=== PATIENT | male | born 1935 | race Caucasian/White ===

== ENCOUNTER 2017-07-07 01:13 | Emergency (ER) | payer MEDICARE ==
[~2017-07-07] VITALS: Ht 180.3 cm; Wt 93.9 kg
[~2017-07-07 01:13] MED LIST: ALLOPURINOL100 MG PO; ALLOPURINOL300 MG PO; ASPIR-LOW81 MG PO; CO Q-10200 MG PO; COLCHICINE0.6 M1 PO; METAMUCIL FIBE3.4 GM PO; METFORMIN HCL500 MG PO; METOPROLOL TAR100 MG PO; NIACIN500 M1 PO; OMEGA 3 1,0001 EACH PO; TAMSULOSIN HCL0.4 MG PO; TESTOSTERO200 MG/1 M IM; TURMERIC538 MG PO; ULTRAM50 MG PO; VITAMIN B122500 MCG PO; WARFARIN SODIUM5 MG PO; ZOLPIDEM TARTRA10 MG PO
== END 2017-07-07 03:45 | disposition home or self-care (01) ==
LOC: ED 01:13
PROC: 0HQ1XZZ Repair Face Skin, External Approach (ICD-10-PCS; principal; 2017-07-07)
DX: K91.841 Postprocedural hemorrhage of a digestive system organ or structure following other procedure (principal); Z87.891 Personal history of nicotine dependence; Z79.01 Long term (current) use of anticoagulants; Z79.84 Long term (current) use of oral hypoglycemic drugs; Z79.82 Long term (current) use of aspirin
CPT/HCPCS: 12001; 80053; 85025; 85610; 85730; 99283

== ENCOUNTER 2017-12-04 17:26 | Emergency (ER) | payer MEDICARE ==
[~2017-12-04] VITALS: Ht 180.3 cm; Wt 93.9 kg
--- OUTSIDE RECORDS SUMMARY | ~2017-12-04 | XMS | Clinical Summary ---
Demographics + + + | Address | [address] | | | [place] [address] | + + + | Home Phone | | + + + | Preferred Language | Unknown | + + + | Marital Status | | + + + | Advent Affiliation | Unknown | + + + | Race | Unknown | + + + | Ethnic Group | Unknown | + + + Author + + + | Author | [facility] | + + + | Organization | [facility] | + + + | Address | Unknown | + + + | Phone | Unavailable | + + + Support + + +---------+ + | Name | Relationship | Address | Phone | + + +---------+ + | Joaquín Vaz | ECON | Unknown | | + + +---------+ + Care Team Providers + +------+ + | Care Nurse Leader Name | Role | Phone | + +------+ + | John Murray MD | PP | | + +------+ + Allergies + + + + + + | Active Allergy | Reactions | Severity | Noted | Comments | | | | | Date | | + + + + + + | Lisinopril | Cough | Low | 10/25/20 | Cough | | | | | 12 | | + + + + + + Current Medications + + +-------+---------+------+------+-------+ | Prescription | Sig. | Disp. | Refills | Star | End | Statu | | | | | | t | Date | s | | | | | | Date | | | + + +-------+---------+------+------+-------+ | metFORMIN | Take 500 mg by mouth | | | | | Activ | | (GLUCOPHAGE) 500 MG | daily. | | | | | e | | tablet | | | | | | | + + +-------+---------+------+------+-------+ | colchicine 0.6 MG | Take 0.6 mg by mouth | | | | | Activ | | tablet | daily. | | | | | e | + + +-------+---------+------+------+-------+ | tamsulosin | Take 0.8 mg by mouth | | | | | Activ | | (FLOMAX) 0.4 MG | After dinner. | | | | | e | | capsule | Administer 30 | | | | | | | | minutes after the | | | | | | | | same meal each day. | | | | | | | | Capsules should be | | | | | | | | swallowed whole; do | | | | | | | | not crush, chew, or | | | | | | | | open | | | | | | + + +-------+---------+------+------+-------+ | psyllium | Take 1 packet by | | | | | Activ | | (METAMUCIL) 58.6 % | mouth daily. | | | | | e | | powder | | | | | | | + + +-------+---------+------+------+-------+ | Multiple | Take by mouth | | | | | Activ | | Vitamins-Minerals | daily. | | | | | e | | (OCUVITE EYE HEALTH | | | | | | | | FORMULA PO) | | | | | | | + + +-------+---------+------+------+-------+ | testosterone | Inject 100 mg into | | | | | Activ | | cypionate | the muscle every 28 | | | | | e | | (DEPOTESTOTERONE | days. | | | | | | | CYPIONATE) 100 MG/ML | | | | | | | | injection | | | | | | | + + +-------+---------+------+------+-------+ | acetaminophen | Take 650 mg by mouth | | | | | Activ | | (TYLENOL) 650 MG CR | daily as needed for | | | | | e | | tablet | Pain. | | | | | | + + +-------+---------+------+------+-------+ | cyanocobalamin | Take 1,000 mcg by | | | | | Activ | | (VITAMIN B-12) 1000 | mouth daily. | | | | | e | | MCG tablet | | | | | | | + + +-------+---------+------+------+-------+ | Misc Natural | Take 1 tablet by | | | | | Activ | | Products (JOINT | mouth daily. | | | | | e | | SUPPORT COMPLEX PO) | | | | | | | + + +-------+---------+------+------+-------+ | TURMERIC PO | Take 720 mg by mouth | | | | | Activ | | | daily. | | | | | e | + + +-------+---------+------+------+-------+ | losartan (COZAAR) | Take 25 mg by mouth | | | | | Activ | | 25 MG tablet | daily. | | | | | e | + + +-------+---------+------+------+-------+ | warfarin | Take 5 mg by mouth | | | | | Activ | | (COUMADIN) 5 MG | daily. | | | | | e | | tablet | | | | | | | + + +-------+---------+------+------+-------+ | metoprolol | Take 1 tablet by | | | 10/0 | | Activ | | (TOPROL-XL) 50 MG 24 | mouth daily. | | | 3/20 | | e | | hr tablet | | | | 17 | | | + + +-------+---------+------+------+-------+ + + +-------+ +------+------+-------+ | Hospital, Clinic, or | Ordered | Route | Frequency | Star | End | Statu | | Other Facility | Dose | | | t | Date | s | | Administered | | | | Date | | | | Medication | | | | | | | + + +-------+ +------+------+-------+ | aspirin chewable | 81 mg | PO | Daily With Breakfast | 02/24 | | Activ | | tablet 81 | | | | 09/12 | | e | | mgIndications: | | | | 17 | | | | Peripheral vascular | | | | | | | | disease (HCC) | | | | | | | + + +-------+ +------+------+-------+ Active Problems + + + | Problem | Noted Date | + + + | Spinal stenosis of lumbar region | 01/26/2017 | + + + | Peripheral vascular disease (HCC) | 01/26/2017 | + + + | HTN (hypertension) | 04/12/2014 | + + + + + | Last Assessment & Plan: HTN, not well controlled, daily we | | added lisinopril 2.5 mg daily, this can be titrated up | | accordingly. I've asked him to get a BMP in one week. | + + + + + | Diabetes mellitus, type 2 | 04/12/2014 | + + + + + | Last Assessment & Plan: DM2, managed by PCP. | + + + + + | Permanent atrial fibrillation (HCC) | 05/18/2013 | + + + + + | Last Assessment & Plan: Cardiac dysrhythmias, clinically | | benign. | + + + + + | Moderate mitral regurgitation | 05/18/2013 | + + + + + | Last Assessment & Plan: MR, TR. 78yo WM, doing rel | | well, he is modestly active, denying any chest discomfort, | | shortness of breath, palpitations, or lightheadedness. Denies | | any new visual disturbances, dysarthria, dysphasia, lateralizing | | signs or symptoms. Recent of carotid ultrasound relatively | | benign, echocardiogram, also relatively benign. Tolerating | | medications. His blood pressure remains elevated, today we added | | lisinopril 2.5 mg daily, this can be titrated as tolerated, BMP | | in one week.Hx CABG: noHx PCI/stent: Lokesh/ICD: noLast | | Cath: naLast Echo, 05/02/2014: borderline concentric LVH, LVEF | | 65-70%, mild LAE, trace MR, trace TR, trace PI, IVC not seen | | well.Last stress test, 09/25/2010: no Lexiscan-induced chest pain, | | no ST segment elevation. Nuclear perfusion is consistent with | | possible mild diaphragmatic attenuation but no evidence of | | myocardial infarction or ischemia with LVEF 70%. | + + + + + | Carotid bruit | 05/18/2013 | + + + + + | Last Assessment & Plan: Carotid bruit, L>R, asymptomatic, | | Carotid US requested.Last Carotid US, 05/02/2014: pee plaque, no no | | significant obstruction. | + + + + + | Other chronic pulmonary heart diseases | 04/21/2013 | + + + + + | Last Assessment & Plan: Pulmonary HTN, cause unclear. Did | | have pee pneumonia last year. | + + Resolved Problems + + + + | Problem | Noted | Resolved | | | Date | Date | + + + + | Chest pain, unspecified | 04/21/20 | | | | 13 | 7 | + + + + | Anemia, unspecified | 04/21/20 | | | | 13 | 7 | + + + + | Other symptoms involving cardiovascular system | 04/21/20 | | | | 13 | 7 | + + + + Family History + + +------+ + | Medical History | Relation | Name | Comments | + + +------+ + | Heart disease | Father | | | + + +------+ + | Diabetes type II | Mother | | | + + +------+ + | High cholesterol | Mother | | | + + +------+ + | Hypertension | Mother | | | + + +------+ + + +------+ + + | Relation | Name | Status | Comments | + +------+ + + | Father | | | massive heart attack | | | | (Age | | | | | 47) | | + +------+ + + | Mother | | | DMII, HTN,Hyperlipidemia | | | | (Age | | | | | 89) | | + +------+ + + Social History + + + +--------+ + | Tobacco Use | Types | Packs/Day | Years | Date | | | | | Used | | + + + +--------+ + | Former Smoker | Cigarettes | | 30 | Quit: 04/26/1979 | + + + +--------+ + + +---+---+---+ | Smokeless Tobacco: | | | | | Former User | | | | + +---+---+---+ + + | Comments: smoked 1 ppd | + + + + +---------+ + | Alcohol Use | Drinks/We | oz/Week | Comments | | | ek | | | + + +---------+ + | Yes | | | rarely drinks beer | + + +---------+ + + + + | Sex Assigned at | Date Recorded | | | | + + + | Not on file | | + + + Last Filed Vital Signs + + + + | Vital Sign | Reading | Time Taken | + + + + | Blood Pressure | 150/80 | 06/30/2017 2:47 PM PST | + + + + | Pulse | 82 | 06/30/2017 2:47 PM PST | + + + + | Temperature | - | - | + + + + | Respiratory Rate | 18 | 06/21/2014 3:29 PM PST | + + + + | Oxygen Saturation | 97% | 06/30/2017 2:47 PM PST | + + + + | Inhaled Oxygen | - | - | | Concentration | | | + + + + | Weight | 94.3 kg (207 lb 14.4 | 06/30/2017 2:47 PM PST | | | oz) | | + + + + | Height | 180.3 cm (5' 11") | 06/30/2017 2:47 PM PST | + + + + | Body Mass Index | 29 | 06/30/2017 2:47 PM PST | + + + + Plan of Treatment + + + + + | Health Maintenance | Due Date | Last Done | Comments | + + + + + | Diabetic Eye Exam | | | | | | 6 | | | + + + + + | Diabetic Foot Exam | | | | | | 6 | | | + + + + + | Microalbumin | | | | | Screening | 6 | | | + + + + + | Vaccine: | | | | | Dtap/Tdap/Td (1 - | 5 | | | | Tdap) | | | | + + + + + | Vaccine: | | | | | Pneumococcal 65+ | 1 | | | | Low/Medium Risk (1 | | | | | of 2 - PCV13) | | | | + + + + + | Hemoglobin A1c | | 07/12/2012, 01/11/2012 | | | | 3 | | | + + + + + | Vaccine: Influenza | | | | | (#1) | 8 | | | + + + + + Results Not on filefrom Last 3 Months Insurance + +--------+ +------+-------+ + | Payer | Benefi | Subscriber | Type | Phone | Address | | | t Plan | ID | | | | | | / | | | | | | | Group | | | | | + +--------+ +------+-------+ + | MEDICARE | MEDICA | [id number] | | | [address] | | | RE | | | | [place] [address] | | | IP-OP | | | | | + +--------+ +------+-------+ + + +--------+ +--------+ + + | Guarantor Name | Accoun | Relation to | Date | Phone | Billing Address | | | t Type | Patient | of | | | | | | | | | | + +--------+ +--------+ + + | JUSTICE VAZ | Person | Self | [birth year] | Home: | [address] | | | al/Fam | | 1935 | [phone] | [place] | | | val[place] | | | [phone] | [phone] | + +--------+ +--------+ + +
--- OUTSIDE RECORDS SUMMARY | ~2017-12-04 | XMS | Clinical Summary ---
Demographics + + + | Address | [address] | | | [place] [address] | + + + | Home Phone | | + + + | Preferred Language | Unknown | + + + | Marital Status | | + + + | Zoroastrianism Affiliation | Unknown | + + + | Race | Unknown | + + + | Ethnic Group | Unknown | + + + Author + + + | Author | [facility] | + + + | Organization | [facility] | + + + | Address | Unknown | + + + | Phone | Unavailable | + + + Support + + +---------+ + | Name | Relationship | Address | Phone | + + +---------+ + | Joaquín Vaz | ECON | Unknown | | + + +---------+ + Care Team Providers + +------+ + | Care Charger Tester Name | Role | Phone | + [...] +------+-------+ + | MEDICARE | MEDICA | [id number] | | | [address] | | | RE | | | | [place] [address] | | | IP-OP | | | [...] | | al/Fam | | 1935 | [phone] | [place] | | | val[place] | | | [phone] | [phone] | + +--------+ +--------+ + +
--- OUTSIDE RECORDS SUMMARY | ~2017-12-04 | XMS | Clinical Summary ---
Demographics + + + | Address | [address] | | | [place] [address] | + + + | Home Phone | | + + + | Preferred Language | Unknown | + + + | Marital Status | | + + + | Evangelical Affiliation | 1028 | + + + | Race | Unknown | + + + | Ethnic Group | Unknown | + + + Author + + + | Author | [facility] | | | and [place] | + + + | Organization | [facility] | | | and [place] | + + + | Address | Unknown | + + + | Phone | Unavailable | + + + Support + + + + + | Name | Relationship | Address | Phone | + + + + + | Joaquín Vaz | SKYLER | [address] | | | | | [place], [place] | | | | | [address] | | + + + + + | Daniela Vaz | ECON | [address] | | | | | [place], [place] | | | | | [address] | | + + + + + Care Team Providers + +------+ + | Care Operator Ground Based [employer] Name | Role | Phone | + +------+ + | Esteban Dodd MD | PP | Unavailable | + +------+ + Allergies + + + + + + | Active Allergy | Reactions | Severity | Noted | Comments | | | | | Date | | + + + + + + | Amitriptyline | Other (See Comments) | | 02/18/20 | Bad dreams | | | | | 12 | | + + + + + + | Felodipine | Other (See Comments) | | 02/18/20 | hypotention | | | | | 12 | | + + + + + + | Fluoxetine | Other (See Comments) | | 02/18/20 | Bad dreams | | | | | 12 | | + + + + + + | Lisinopril | Other (See Comments) | | 02/18/20 | Cough | | | | | 12 | | + + + + + + Current Medications + + +--------+---------+------+------+-------+ | Prescription | Sig. | Disp. | Refills | Star | End | Statu | | | | | | t | Date | s | | | | | | Date | | | + + +--------+---------+------+------+-------+ | | Take 1-2 tablets by | | | | | Activ | | HYDROcodone-acetamin | mouth every 6 hours | | | | | e | | ophen (NORCO) 5-325 | as needed. | | | | | | | mg per tablet | | | | | | | + + +--------+---------+------+------+-------+ | zolpidem (AMBIEN) | Take 10 mg by mouth | | | | | Activ | | 10 mg tablet | nightly as needed. | | | | | e | + + +--------+---------+------+------+-------+ | buPROPion | Take 100 mg by mouth | | | | | Activ | | (WELLBUTRIN SR) 100 | 2 times daily. | | | | | e | | mg 12 hr tablet | | | | | | | + + +--------+---------+------+------+-------+ | metoprolol | Take 100 mg by mouth | | | | | Activ | | (LOPRESSOR) 100 MG | Daily. | | | | | e | | tablet | | | | | | | + + +--------+---------+------+------+-------+ | psyllium | Take 0.52 g by mouth | | | | | Activ | | (METAMUCIL) 0.52 G | Daily. | | | | | e | | capsule | | | | | | | + + +--------+---------+------+------+-------+ | potassium chloride | Take 10 mEq by | | | | | Activ | | (K-DUR) 10 MEQ | mouth. | | | | | e | | tablet | | | | | | | + + +--------+---------+------+------+-------+ | omeprazole | Take 20 mg by mouth | | | | | Activ | | (PRILOSEC) 20 mg | every morning | | | | | e | | capsule | (before breakfast). | | | | | | | | | | | | | | + + +--------+---------+------+------+-------+ | Multiple Vitamin | Take 1 tablet by | | | | | Activ | | (MULTIVITAMIN PO) | mouth Daily. | | | | | e | + + +--------+---------+------+------+-------+ | Coenzyme Q10 | Take 1 capsule by | | | | | Activ | | (COQ10) 400 MG CAPS | mouth Daily. | | | | | e | + + +--------+---------+------+------+-------+ | | Take 12.5 mg by | | | 12/25 | | Activ | | HYDROCHLOROTHIAZIDE | mouth Daily. | | | 07/13 | | e | | PO | | | | 12 | | | + + +--------+---------+------+------+-------+ | colchicine 0.6 mg | Take 1 mg by mouth | | | 09/1 | | Activ | | tablet | Daily. | | | 3/20 | | e | | | | | | 12 | | | + + +--------+---------+------+------+-------+ | niacin 500 mg | Take 500 mg by mouth | | | 12/25 | | Activ | | tablet | 3 times daily (with | | | 3/20 | | e | | | meals). | | | 12 | | | + + +--------+---------+------+------+-------+ | metFORMIN | Take 500 mg by mouth | | | 1 | | Activ | | (GLUCOPHAGE) 500 mg | daily (with | | | 3/20 | | e | | tablet | breakfast). | | | 12 | | | + + +--------+---------+------+------+-------+ | testosterone | Inject 200 mg into | | | | | Activ | | cypionate | the muscle Every 28 | | | | | e | | (DEPO-TESTOSTERONE) | days. | | | | | | | 200 mg/mL injection | | | | | | | + + +--------+---------+------+------+-------+ | UNCODED MEDICATION | Wear at all times | 1 | 0 | 11/ | | Activ | | | while sleeping. | Device | | 07/13 | | e | | | | | | 12 | | | + + +--------+---------+------+------+-------+ | UNCODED | Diagnosis: | 1 | 0 | 12/2 | | Activ | | MEDICATIONIndication | Obstructive Sleep | Device | | 10/13 | | e | | s: Obstructive sleep | ApneaICD-9: | | | 12 | | | | apnea (adult) | 327.23Length of | | | | | | | (pediatric) | Need: 99 Months | | | | | | + + +--------+---------+------+------+-------+ | [place]-3 Fatty | Take 1 tablet by | | | | | Activ | | Acids (OMEGA 3 PO) | mouth Daily. | | | | | e | + + +--------+---------+------+------+-------+ | | Take 1 tablet by | | | | | Activ | | glucosamine-chondroi | mouth Daily. | | | | | e | | tin 500-400 MG | | | | | | | | tablet | | | | | | | + + +--------+---------+------+------+-------+ | aspirin 325 mg | Take 325 mg by mouth | | | | | Activ | | tablet | Daily. | | | | | e | + + +--------+---------+------+------+-------+ Active Problems + + + | Problem | Noted Date | + + + | Obstructive sleep apnea (adult) (pediatric) | 02/18/2012 | + + + + + | Overview: ICD-10 Record update | + + + +---+ | SPINAL STENOSIS, LUMBAR | | + +---+ | HYPERTENSION | | + +---+ | DIABETES MELLITUS, TYPE II | | + +---+ | HYPOGONADISM | | + +---+ | Blood in stool | | + +---+ Family History + + +------+ + | Medical History | Relation | Name | Comments | + + +------+ + | Cancer | Brother | | possible bone cancer | + + +------+ + | Diabetes | Mother | | | + + +------+ + | High blood pressure | Mother | | | + + +------+ + | Arthritis | Sister | | | + + +------+ + | Arthritis | Sister | | | + + +------+ + + +------+ + + | Relation | Name | Status | Comments | + +------+ + + | Brother | | Alive | | + +------+ + + | Brother | | Alive | | + +------+ + + | Brother | | Alive | | + +------+ + + | Daughter | | Alive | | + +------+ + + | Father | | | Myocardial infarction | | | | (Age | | | | | 47) | | + +------+ + + | Mother | | | Old age | | | | (Age | | | | | 89) | | + +------+ + + | Sister | | | Lung cancer | | | | (Age | | | | | 29) | | + +------+ + + | Sister | | | of colon cancer | | | | (Age | | | | | 78) | | + +------+ + + | Sister | | Alive | | + +------+ + + | Sister | | Alive | | + +------+ + + | Son | | Alive | | + +------+ + + | Son | | Alive | | + +------+ + + | Son | | Alive | | + +------+ + + Social History + + + +--------+ + | Tobacco Use | Types | Packs/Day | Years | Date | | | | | Used | | + + + +--------+ + | Former Smoker | Cigarettes | 1 | 21 | Quit: 02/18/1980 | + + + +--------+ + + +---+---+---+ | Smokeless Tobacco: | | | | | Never Used | | | | + +---+---+---+ + + +---------+ + | Alcohol Use | Drinks/We | oz/Week | Comments | | | ek | | | + + +---------+ + | No | | | | + + +---------+ + + + + | Sex Assigned at | Date Recorded | | | | + + + | Not on file | | + + + Last Filed Vital Signs + + + + | Vital Sign | Reading | Time Taken | + + + + | Blood Pressure | 140/78 | 05/12/2012 1401 PST | + + + + | Pulse | 51 | 05/12/2012 140 PST | + + + + | Temperature | - | - | + + + + | Respiratory Rate | 14 | 05/12/2012 140 PST | + + + + | Oxygen Saturation | 97% | 03/08/2012 0824 PST | + + + + | Inhaled Oxygen | - | - | | Concentration | | | + + + + | Weight | 99.8 kg (220 lb) | 08/09/20121607 PDT | + + + + | Height | 180.3 cm (5' 11") | 08/09/20121607 PDT | + + + + | Body Mass Index | 30.68 | 08/09/20121607 PDT | + + + + Plan of [...] filefrom Last 3 Months Insurance + +--------+ +--------+ +---------+ | Payer | Benefi | Subscriber | Type | Phone | Address | | | t Plan | ID | | | | | | / | | | | | | | Group | | | | | + +--------+ +--------+ +---------+ | MEDICARE | MEDICA | [id number] | Medica | [phone] | | | | RE | | re | [phone] | | | | PART A | | | | | | | AND B | | | | | + +--------+ +--------+ +---------+ | ANASTASIYA | STERLI | [id number] | Indemn | [phone] | | | | NG | | ity | [phone] | | | | MDCR | | | | | | | SUPPL | | | | | | | CIGNA | | | | | + +--------+ +--------+ +---------+ + +--------+ +--------+ + + | Guarantor [...] [address] | | | al/Fam | | 1936 | [phone] | [place] [address] | | | valerie | | | [phone] | | + +--------+ +--------+ + +
--- OUTSIDE RECORDS SUMMARY | ~2017-12-04 | XMS | Clinical Summary ---
Demographics + + + | Address | [address] | | | [place] [address] | + + + | Home Phone | | + + + | Preferred Language | Unknown | + + + | Marital Status | | + + + | Pentecostalism Affiliation | 1028 | + + + | Race | Unknown | + + + | Ethnic Group | Unknown | + + + Author + + + | Author | [facility] | | | and [place] | + + + | Organization | [facility] | | | and [place] | [...] [place], [place] | | | | | [address] | | + + + + + | Daniela Vaz | ECON | [address] | | | | | [place], [place] | | | | | [address] | | + + + + + Care Team Providers + +------+ + | Care Manager Background Name | Role | Phone | + [...] | | | + + +--------+---------+------+------+-------+ | Minter-3 Fatty | Take 1 tablet by | [...] +--------+ +---------+ | MEDICARE | MEDICA | [id number] | Medica | [phone] | | | | RE | | re | [phone] | | | | PART A | | | | | | | AND B | | | | | + +--------+ +--------+ +---------+ | ANASTASIYA | STERLI | [id number] | Indemn | [phone] | | | | NG | | [...] | | al/Fam | | 1936 | [phone] | [place] [address] | | | valerie | | | [address] | | + +--------+ +--------+ + +
--- NOTE | 2017-12-05 14:26 | EKG ---
[facility] [address] [place], [place] [address] Signed Atrial fibrillation Right bundle branch block Abnormal ECG No previous ECGs available Confirmed by JENIFER LINN MD ([id number]) on 12/05/2017 2:25:57 PM Electronically Signed By: JENIFER LINN MD 12/05/17 1426 PATIENT NAME: JUSTICE LLANES Electrocardiogram DATE OF : 35 PHYSICIAN: JENIFER LINN MD REPORT #: [id number] REPORT IS CONFIDENTIAL AND NOT TO BE RELEASED WITHOUT AUTHORIZATION
== END 2017-12-04 20:17 | disposition short-term general hospital (02) ==
LOC: ED 17:26
DX: I61.9 Nontraumatic intracerebral hemorrhage, unspecified (principal); Z87.891 Personal history of nicotine dependence; Z79.01 Long term (current) use of anticoagulants; Z79.84 Long term (current) use of oral hypoglycemic drugs; Z79.82 Long term (current) use of aspirin; Z79.899 Other long term (current) drug therapy
CPT/HCPCS: 70450; 80053; 81001; 84484; 85025; 85610; 85730; 93005; 93010; 96365; 96366; 96375; 99285; J1953

== ENCOUNTER 2021-10-06 11:52 | Inpatient (IN) | payer MEDICARE, OTHER ==
[~2021-10-06] VITALS: Ht 180.3 cm; Wt 87.6 kg
[~2021-10-06 11:52] MED LIST changes: +NIACIN ER1000 MG PO; -NIACIN500 M1 PO
--- OUTSIDE RECORDS SUMMARY | 2021-10-06 11:54 | XMS ---
PreManage Notification: JUSTICE LLANES Security [employer] Specialist Events No recent Security Events currently on file [facility] There are no care providers on record at this time. Marvin has no Care Guidelines for this patient. Wang VISIT COUNT (12 MO.) 1 MALIA Rizo TOTAL 1 NOTE: Visits indicate total known visits. ED/C VISIT TRACKING (12 MO.) 10/06/2021 11:53 MALIA Mcgregor [place] TYPE: Emergency COMPLAINT: - L FOOT WOUND INPATIENT VISIT TRACKING (12 MO.) No inpatient visits to display in this time frame [email or web address]
[2021-10-06] MEDS ORDERED: DOXYCYCLINE HY100 MG PO (12:17)
[2021-10-06] MEDS ORDERED: AMOX TR-K CLV1 EAC1 PO (12:17)
--- NOTE | 2021-10-06 15:00 | NUR ---
Pt arrives from ED to [facility] room 112 on stretcher. Able to transfer self to bed. R foot noted to be hot, red and tender. Outlined cellulitic porition noted. Elevated on pillow. L foot wrapped from recent amputation of L middle toe with online trader outpatient. Pt on telemetry, states did not take his scheduled BP meds this am. On room air. IV ABX from ED infusing. Hx and assessment complete- pt states that he has become "more forgetful in the last 3 weeks since this all happened" and has to "think carefully about what he's doing". pt endorses frequent falls in past but states "it has been a long time". CHICK[place]OON, bilat hearing aids in place. Upper dentures. Pt uses cane or walker at home usually w ambulation. Pt ambulates to BR with 1PA to void, has difficulty with dribbling/aim, new gown provided. Pt Daniela to come in later this evening.
--- NOTE | 2021-10-06 16:17 | NUR ---
Scheduled medications administered, IVF infusing with IV ABX. Pt forgetful, IV wrapped with cloth and coban. Bed alarm in place. Pt states "I keep wondering why I'm here", discussed need for IV ABX, infection risk, etc. and pt verbalizes understanding- continue to reinforce. Pt states having pain, discussed home meds and Dr Carlson aware.
[2021-10-06] MEDS ORDERED: HYDROCODON-ACE1 EA10 PO (16:48)
[2021-10-06] MEDS ORDERED: LOSARTAN POTASS25 MG PO (16:50)
[2021-10-06] MEDS ORDERED: POTASSIUM CHLO10 ME2 PO (16:50)
[2021-10-06] MEDS ORDERED: METFORMIN HCL500 M1 PO (16:51)
[2021-10-06] MEDS ORDERED: TAMSULOSIN HCL0.4 MG PO (16:52)
[2021-10-06] MEDS ORDERED: METOPROLOL SUCC25 MG PO (16:53)
--- NOTE | 2021-10-06 17:30 | NUR ---
MED REC COMPLETE
--- NOTE | 2021-10-06 17:31 | NUR ---
1 unit SS humalog administered and pt educated. Pt stands at bedside to use urinal, HR 130's with Afib and occasional PVCs. Dr Carlson aware.
--- NOTE | 2021-10-06 18:12 | NUR ---
Pt medicated with 1 tab norco for 6/10 pain to post op L foot and cellulitic R foot. Able to swallow pill whole with water. IVF infusing. HOB elevated, pt watching tv. Dinner tray cleared, pt ate 100% of meal. Call light in reach.
--- NOTE | 2021-10-06 19:15 | NUR ---
BEDSIDE REPORT FROM CRISTÓBAL Swift RN, PT HAS BEEN MORE ALERT AND CLEAR IN CONVERSATION TODAY, HE HAS BEEN COOPERATIVE WITH CARE, CONCERN FOR MONITORING URINE OUTPUT CLOSE.
--- NOTE | 2021-10-06 19:20 | NUR ---
REPORT FROM STAN RN, PT NEW ADMIT, RESTING IN BED, ALERT AND ORIENTED. REPOSITIONED AND HAVE FEET ELEVATED ON PILLOWS.
--- NOTE | 2021-10-06 19:57 | NUR ---
PT SET OFF BED ALARM. THIS RN INTO ROOM, PT ATTEMPTING TO GET OUT OF BED. HE SAID HE WAS PICKING UP HIS PHONE, PT THEN SAID HE NEEDED TO USE THE BATHROOM. PT ASSISTED WITH URINAL STANDING AT BEDSIDE. THEN BACK TO BED WITH BED ALARM ON FOR PT SAFETY. NO OTHER REQUESTS AT THIS TIME
--- NOTE | 2021-10-06 22:23 | NUR ---
CALL LIGHT ANSWERED. SBA PATIENT STOOD UP AT THE SIDE OF THE BED TO USE THE URINAL. PATIENT IS BACK IN BED. TV OFF. BED ALARM ON. CALL LIGHT WITHIN REACH AND SIDE TABLE.
--- NOTE | 2021-10-06 23:41 | NUR ---
PT RESTING IN BED ON LEFT SIDE, EYES CLOSED RR 18 BPM, ABX INFUSING WELL IVF, IV SITE ASSESSED WNL. CALL LIGHT IN REACH, BED ALARM ON FOR PT SAFETY. NO NEW CONCERNS
--- NOTE | 2021-10-07 | NUR ---
BED ALARMING. PATIENT GOT UP SITTING AT THE SIDE OF THE BED. PATIENT STATED "I NEED TO PEE". PATIENT IS CONFUSED. PATIENT STATED I THOUGHT I AM HOME. WHEN I ASKED WHERE HE IS PATIENT STATED "I DONT KNOW" PATIENT VOIDED USING THE URINAL SBA. PATIENT IS BACK LAYING IN BED. DENIES FURTHER NEEDS AT THIS TIME. BED ALARM ON. SIDE TABLE AND CALL LIGHT CLOSED BY.
--- NOTE | 2021-10-07 00:43 | NUR ---
CALL LIGHT ANSWERED. IV PUMP ALARMING. ISSUE RESOLVED. SBA WITH FWW TO SIDE OF BED TO VOID 150 ML YELLOW URINE. BACK TO BED, MATA WELL. LLE ELEVATED ON PILLOWS. FRESH DRINK PROVIDED. PT PLEASANTLY CONFUSED. REORIENTATION PROVIDED. ASSISTED WITH TV. NO FURTHER NEEDS. CALL LIGHT IN REACH. BED ALARM FOR SAFETY.
--- NOTE | 2021-10-07 01:30 | NUR ---
BED ALARM SET OFF, PT ATTEMPTING TO EXIT BED WITHOUT USING CALL LIGHT TO REQUESTS ASSISTANCE. THIS RN ASSISTED PT WITH FWW AND URINAL, PT SPILT URINEAL ON FLOOR, VOIDED 150ML OR YELLOW URINE IN URINAL. WHEN URINE SPILT PT SAID "WELL, I DIDNT KNOW I WAS SO BIG I WOULDNT FIT IN THE BOTTLE" THIS RN DID NOT RESPOND, PT THEN SAID "YOU COULD DISAGREE WITH ME" HE THEN SMILED THIS RN SAID " STAFF DOES NOT JOKE ABOUT OR DISCUSS PRIVATE PARTS OF THE BODY WITH PT UNLESS IT IS IN REGARDS TO PTS DX AND TREATMENT" PT SAID "OH, OK" HE THEN ASKED IF THIS RN LIVES IN [facility]. THIS RN SAID "NO", ASSISTED PT BACK TO BED WITH WARM BLANKET. AND SAID BRIANNA.
--- NOTE | 2021-10-07 04:40 | NUR ---
PT HAS SLEPT INTERMITTEN, HE HAS BEEN UP FREQUESNTLY TO VOID AT BEDSIDE IN URINAL USING FWW AND ONE PERSON ASSIST. SHE IS COIDING QUANTITY SUFFICIENT PLUS. NO NEW CONCERNS OVER SHIFT SHE HAD ONE PRN NEB AND TYLENOL PRN FOR GENERAL ACHES.
--- NOTE | 2021-10-07 04:49 | NUR ---
BED ALARMING. PATIENT SAT AT THE EDGE OF THE BED. PATIENT GOT UP TO USE THE URINAL. PATIENT IS BACK LYING IN BED. BED ALARM ON FOR SAFETY.
--- NOTE | 2021-10-07 05:37 | NUR ---
BED ALARM SOUNDING. 1PA WITH FWW TO STAND TO VOID AT SIDE OF BED. BACK IN BED, LEGS ELEVATED ON PILLOWS. BED ALARM ON. pt REQUESTING LOTION FOR FOOT, PRIMARY RN NOTIFIED.
--- NOTE | 2021-10-07 07:05 | NUR ---
Report received from Jessica STARK. Pt resting in bed, awake and interactive with staff. On tele #9, HR [phone] at this time. L leg elevated on pillow. IVF infusing WNL. No needs at this time, call light in reach and bed alarm in place
--- NOTE | 2021-10-07 08:20 | NUR ---
Scheduled medications administered. Pt very impulsive, fidgety. Continues to remove tele leads and getting caught in IV tubing. Assisted to untangle and transfer to chair for breakfast. Pt requires 1-2 P with transfer, easily distracted and unstable with movement. Chair alarm in place. Assisted to use urinal. IV ABX and IV magnesium infusing. Dr Lugo in room to assess wound- cleansed, wound culture collected, wrapped with silvadene dressing directly to open area and kerlix. Order for MRI to L foot entered. Pt extensively educated regarding need for IV ABX and current hospital stay. Continue to reinforce.
--- NOTE | 2021-10-07 09:09 | NUR ---
PATIENT UP IN RECLINER. CHAIR ALARM ON, LINEN CHANGED. CALL LIGHT AND PERSONAL ITEMS IN EASY REACH
--- NOTE | 2021-10-07 09:32 | NUR ---
PT AWAKE IN CHAIR. CALL LIGHT IN REACH. NO FURTHER NEEDS AT THIS TIME.
--- NOTE | 2021-10-07 09:50 | NUR ---
Pt taken down to MRI. Pt pulls R AC IV out- L wrist still in place.
--- NOTE | 2021-10-07 11:00 | NUR ---
Pt back to room after MRI, ambulates to bed, then states needing to have BM, ambulates with SBA and FWW, requiring many verbal cues to use walker but is unstable without it. New IV started in R upper FA. IV ABX infusing. Pt requests to nap, curtains closed, allowed to rest undisturbed at this time. Bed alarm in place. Tele on. Call light in reach
--- NOTE | 2021-10-07 11:00 | NUR ---
Pt back to room after MRI, ambulates to bed, then states needing to have BM, ambulates with SBA and FWW, requiring many verbal cues to use walker but is unstable without it. New IV started in L upper FA. IV ABX infusing. Pt requests to nap, curtains closed, allowed to rest undisturbed at this time. Bed alarm in place. Tele on. Call light in reach
--- NOTE | 2021-10-07 12:09 | NUR ---
PT TAKEN TO IMAGING. WILL CHECK BACK
--- NOTE | 2021-10-07 12:12 | NUR ---
Bed alarm set off, this RN to room. pt stands at bedside with assistance to use urinal. Back to bed and set up for lunch. IV to L hand partially out, appears slightly infiltrated in hand, removed and wrapped with coban. IV ABX infusing into L FA IV. Bed alarm in place
--- NOTE | 2021-10-07 13:08 | NUR ---
IV pump alarming distal occlusion, resolved, pt assisted to reposition in bed and untangle from cords. Coffee provided per pt request. Call light in reach, bed alarm in place.
--- NOTE | 2021-10-07 13:28 | NUR ---
PT SITTING ON SIDE OF BED LOOKING OUT WINDOW AND EATING LUNCH. PT ALERT, SEEMED TO REMEMBER ME. PT ADMITTED HE DOESN'T GET MUCH SLEEP, AND FELL ASLEEP WHILE IN MRI. SAID MAYBE HE SHOULD GET SOME KIND OF CHAMBER FOR HOME LIKE THE MRI. PT REQUESTED VISIT FROM HIS LOW RAW SUGAR CUTTER, WILL NOTIFY OF PT'S NEED. ABLE TO CONTACT LOW RAW SUGAR CUTTER-HE WILL CAME LATER TODAY.
--- NOTE | 2021-10-07 14:20 | NUR ---
Pt working with physical therapy
--- NOTE | 2021-10-07 15:00 | NUR ---
Pt lives with in a 2 story home with 7 steps. He denies any issues with mobility or stairs. Has hand rails on all stairs. 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 He denies any needs for dc and plans on going home on dc. He is full wt bearing.
--- NOTE | 2021-10-07 15:50 | NUR ---
IV ABX infusing. PO tylenol administered. Pt states that "tylenol does not work", but pt is generally more oriented and not confused to surroundings- has not taken norco today. Pt resting in bed, call light in reach. bed alarm on
--- NOTE | 2021-10-07 17:21 | NUR ---
SARAN Shea in room to collect CBG. This RN enters as patient laying back in bed horizontally and refusing to follow directions. He states "have to go, have to go". Pt asked if he has to void and he says yes. Assisted to use urinal. Pt very fidgety, and states "where's mama?" attempted to redirect and asked pt if he knows where he is, he states he does not know. When asked how old he is, patient responds "I'm 10." Then patient looked out window and points and states "yellow trucks", referring to construction vehicles outside. Pt shown mirror and asked to self identify, he states "that looks like fish." Neuro exam performed and no physical defecits noted. No pronator drift or facial droop. No slurred speech. Pt oriented to self only. Pt's called to update on pt status, she states "this has never happened before". director of professional services and MD notified of change.
--- NOTE | 2021-10-07 18:49 | NUR ---
Pt family at bedside. Situation explained. Pt alert to surroundings, self, age. Not currently oriented to event but redirectable. Assisted to use BR to void and BM. IVF infusing WNL. Gown changed to smaller gown and pt family aware that they could bring his own shirt in for patient comfort.
--- NOTE | 2021-10-07 19:45 | NUR ---
RECEIVED REPORT FROM DAY SHIFT RN. PATIENT IS RETURNING TO BED FROM USING BR. PATIENTS WOUND ON LEFT FOOD REDRESSED. PATIENT DENIES ANY NEEDS. CALL LIGHT IN REACH. BED ALARM ON FOR SAFETY.
--- NOTE | 2021-10-07 21:30 | NUR ---
PATIENT ASSISTED TO THE BR AND WAS ABLE TO VOID. PATIENT IS BACK IN BED RESTING. ASSEMSENT COMPLETED. VITALS TAKEN AND RECORDED. INTAKE AND OUTPUT RECORDED. PATIENTS PM MEDS GIVEN PER ORDER. PATIENT RATES PAIN AT A 4/10, PRN PAIN MEDICATION GIVEN PER ORDER. PATIENTS DRESSING ON LEFT FOOT IS C/D/I. PATIENTS IV INFUSING PER ORDER. PATIENT IS ON RA. PATIENT PROVIDED WITH A SNACK. FRESH ICE WATER PROVIDED. BS WNL. NO FURHTER NEEDS NOTED. CALL LIGHT IN REACH. BED ALARM ON FOR SAFETY.
--- NOTE | 2021-10-07 23:00 | NUR ---
PATIENT CALLED TO USE THE BATHROOM. PATIENT STOOD UP AT THE SIDE OF THE BED TO USE THE URINAL. WALKER. PATIENT IS BACK LAYING IN BED. NO OTHER NEEDS AT THIS TIME. BED ALARM ON. CALL LIGHT WITH IN REACH. THIS OPERATION RESEARCH ANALYST SHOWED HOW TO USE THE CALL LIGHT TO CALL HELP BEFORE GEETTING UP IN BED AND TO CONTROL THE LIGHT ABOVE THE HEAD OF THE BED AND TO TURN THE TV OFF OR ON.
--- NOTE | 2021-10-08 00:04 | NUR ---
PATIENT IS RESTING IN BED WITH EYES CLSOED, RR 16. CALL LIGHT IN REACH. BED ALARM ON FOR SAFETY. IV INFUSING PER ORDER.
--- NOTE | 2021-10-08 01:56 | NUR ---
PATIENTS BED ALARM ALERTED STAFF. PATIENT ASSITED TO STAND AT BEDSIDE AND USE URINAL. PATIENT ABLE TO VOID AND DRIBBLED ON SOCKS AND WOUND DRESSING ON LEFT FOOT. FOOT CLEANED AND REDRESSED. NEW SOCKS PROVIDED. PATIENT IS BACK IN BED RESTING. NO FURTHER NEEDS NOTED. CALL LIGHT IN REACH. BED ALARM ON FOR SAFETY.
--- NOTE | 2021-10-08 02:54 | NUR ---
PATIENT IS RESTING IN BED WATCHING TV. IV INFUSING PER ORDER. NO NEEDS NOTED. CALL LIGHT IN REACH. BED ALARM ON FOR SAFETY.
--- NOTE | 2021-10-08 03:12 | NUR ---
PATIENT USED CALL LIGHT TO ALERT STAFF HE NEEDED TO USE RESTROOM. ANDREW NOONAN ASSISTED TO STAND AT THE BEDSIDE. PATIENT ABLE TO VOID. PATIENT IS BACK IN BED RESTING. PATIENT RATES PAIN AT A 7/10, PRN PAIN MEDICATION GIVEN PER ORDER. PATIENT DENIES ANY FURTHER NEEDS. CALL LIGHT IN REACH. BED ALARM ON FOR SAFETY.
--- NOTE | 2021-10-08 04:31 | NUR ---
PATIENT USED CALL LIGHT. PATIENT ASSITED TO STAND AT THE BEDSIDE TO USE URINAL. PATIENT ABLE TO VOID. PATIENT IS BACK IN BED RESTING. PATIENTS IV INFUSING. PATIENT HAS REMOVED LEFT FOOT DRESSING. PATIENTS FOOT REDRESSED. PATIENT RATES PAIN AT A 7/10, PRN PAIN MEDICATION GIVEN PER ORDER. PATIENT DENIES ANY FURTHER NEEDS. CALL LIGHT IN REACH. BED ALARM ON FOR SAFETY. FRESH WATER PROVIDED.
--- NOTE | 2021-10-08 04:52 | NUR ---
PATIENTS AM MEDS GIVEN PER ORDER. PATIENT GIVEN PRN TYLENOL FOR 5/10 PAIN IN HIS LEFT FOOT. IV INFUSING PER ORDER. NO FURTHER NEEDS NOTED. CALL LIGHT IN REACH. BED ALARM ON FOR SAFETY.
--- NOTE | 2021-10-08 05:33 | NUR ---
PATIENT ASSISTED TO STAND AT THE BEDSIDE AND USE THE URINAL. PATIENT ABLE TO VOID. PATIENT IS BACK IN BED RESTING. PATIENTS LOW EXT ELEVATED ON PILLOWS. NO FURTHER NEEDS NOTED. CALL LIGHT IN REACH. BED ALARM ON FOR SAFETY.
--- NOTE | 2021-10-08 07:14 | NUR ---
REPORT RECEIVED FROM LINCOLN RUDOLPH. DR JONES TO BEDSIDE AND DOING DRESSING CHANGE. THIS RN ENTERS IN THE MIDDLE OF DRESSING CHANGE. LEFT FOOT WOUND VISULAIZED AND PHOTOS TAKEN. WOUND 1CM CIRCUMFRENTIAL SURROUNDING BY 4CM BY 2.75CM CM OF ERRODED TISSUE. REDNESS NOTED ARROUND WOUND BED WITH REDNESS (SEE PHOTOGRAPHS). ERYTHEMA OR SWELLING CONTINUES THROUGH TOES. REDNESS REMAINS WITHIN MARKED OUTLINE, RECEEDING. LEGS ELEVATED ON PILLOW X1. RIGHT FOOT DRESSING CHANGE ALREADY COMPLETED BY , UNABLE TO VISULIZE OR TAKE PHOTOS. PT DENIES ANY PAIN OR NAUSEA. PT DENIES ADDIITONAL REQUESTS OR COMPLAINTS. BED RAILS UP. CALL LIGHT WITHIN REACH. BED ALARM ON.
--- NOTE | 2021-10-08 07:54 | NUR ---
MORNING ASSESSMENT AND MEDICATION DUE. PT RESTING IN BED WATCHING TV. 1 PERSON ASSIST UP TO CHAIR FOR BREAKFAST. PT REPORTS 0.7/10 PAIN IN HIS RIGHT AND LEFT FOOT STATING "THAT PAIN MEDICINE HELPS A LOT." IV ASSESSED, WNL, FLUSHES EASILY. NO S/S OF PHLEBITIS NOTED. PT ALERT AND OREINTED TO ALL BUT TIME TODAY STATING "ITS' 1 O'CLOCK" PT ALSO UNABLE TO RECALL EVENTS OF THIS MORNING WITH DR JONES ARRIVING FOR DRESSING CHANGE. PT AWARE HE IS FORGETFUL AND FULLLY ORIENTED TO PLACE, SELF, AND FOLLOWING DIRECTIONS. LUNG SOUNDS CLEAR. HEART TONES IRREGULAR PER PTS BASELINE. PT DECLINES BOWEL MEDICATIONS RELATED TO RECENT BOWEL MOVEMENTS WHICH PT STATES WERE "SOFT." LEFT FOOT WOUND PREVIOUSLY ASSESS WITH DRESSING CHANGE PER DR. BOLAÑOS. SEE PHOTOGRAPH IN CHART. DRESSINGS TO BILATERAL FEET REMAIN C/D/I WITH NO DRAINAGE NOTED AT THIS TIME. RIGHT FOOT DRESSING WNL AND C/D/I UNABLE TO VISULAIZE WOUND. VERBAL ORDERS GIVEN BY DR. BOLAÑOS TO CHANGE DRESSINGS PRN IF SOILED. ORDER ENTERED. PT REMAINS UP TO CHAIR AT THIS TIME, EATING BREAKFAST. NO ADDITIONAL REQEUSTS OR CONCERNS. CHAIR ALERM ON. CALL LIGHT WITHIN REACH.
--- NOTE | 2021-10-08 09:17 | NUR ---
PATIENT UP TO BATHROOM WITH 1PA AND FWW TO VOID/BM. PATIENT BACK TO CHAIR, ALARM IS ON.
--- NOTE | 2021-10-08 09:24 | NUR ---
PT IS SITTING UP IN CHAIR WATCHING TV. I&O AND VS CHARTED CALL LIGHT WITHIN REACH NO FURTHER TASKS AT THIS TIME
--- NOTE | 2021-10-08 09:51 | NUR ---
VANCOMYACIN DUE. PT REMAINS UP TO CHAIR, WATCHING AND PLAYING ON PHONE. PT ASSISTED WITH USING PHONE. PT DENIES PAIN IN FEET AT THIS TIME. IV ASSESSED, WNL. NO S/S OF PHLEBITIS NOTED. IV ABX STARTED. PT EDUCATION DONE REGARDING NOTIFYING NURSING STAFF IF HE STARTES TO FEEL PAIN AT IV SITE. PT VERBALIZES UNDERSTANDING. PT DENIES ADDITONAL REQUESTS OR COMPLAINTS. CALL LIGHT WITHIN REACH. PUZZLE OFFERED TO PT. PT DECLINES AT THIS TIME. CHAIR ALARM ON.
--- NOTE | 2021-10-08 10:21 | NUR ---
THIS RN TO ROOM TO CHECK ON PT. PT TALKING ON PHONE. IV REMAINS WNL, NO S/S OF PHLEBITIS NOTED. NO ADDITIONAL REQUESTS OR COMPLAINTS. CALL LIGHT WITHIN REACH. CHAIR ALARM ON.
--- NOTE | 2021-10-08 11:00 | NUR ---
THIS RN TO ROOM TO CHECK ON PT. PT REPORTS NEED TO USE URINAL. STAND BY ASSIST UP TO STAND WITH FWW. PT USES URINAL WITH NO SPILLING NOTED. PT REMAINS ALERT AND ORIENTED TO ALL BUT RECENT EVENTS. FORGETFUL OF EVENTS FROM THE DAY BUT EASILY REORIENTED. PT BACK TO CHAIR. NO ADDITIONAL REQUESTS OR COMPLAINTS. PT CONTINUES TO DENY PAIN. CALL LIGHT WITHIN REACH. CHAIR ALARM ON.
--- NOTE | 2021-10-08 11:50 | NUR ---
PT UP TO CHAIR FOR LUNCH. BLOOD SUGAR TAKEN. 1 UNIT INSULIN GIVEN. PT CONTINUES TO DENY PAIN AND NAUSEA. IV SITE REMAINS WNL. NO ADDITIONAL REQUESTS OR COMPLAINTS. CALL LIGHT WITHIN REACH. CHAIR ALARM ON.
--- NOTE | 2021-10-08 12:38 | NUR ---
PT CALL LIGHT ON. PT REQUESTS ASSISTANCE UP TO RESTROOM. STAND BY ASSIST WITH FWW UP TO RESTROOM. PT ABLE TO CHANGES HIS OWN UNDERWARE AND DO HIS OWN CHRISTELLE CARE. PT PASSES GAS AND VOIDS 300ML YELLOW URINE. STAND BY ASSIST WITH FWW BACK TO BED. PT REPORTS HE IS HOPING TO HAVE A NAP. PT DENIES PAIN AND NAUSEA. NO ADDIITONAL REQUESTS OR COMPLAINTS. CALL LIGHT WITHIN REACH. BED RAILS UP. BED ALARM ON.
--- NOTE | 2021-10-08 13:45 | NUR ---
No change in plan for dc, no plan for dc today.
--- NOTE | 2021-10-08 14:04 | NUR ---
AFTERNOON ASSESSMENT AND MEDICATION DUE. PT UP TO CHAIR WATCHING CONSTRUCTION OUTSIDE HIS WINDOW. PT STATES "I WAS GOING TO TAKE A NAP BUT THEN I SAW THAT NEW ONE (A MACHINE) AND WANTED TO WATCH THEM FOR A WHILE." PT REPORTS 2/10 "BURNING ADN TINGLING" PAIN IN THE BOTTOM OF HIS LEFT FOOT AND TOES OF HIS RIGHT FOOT. PT REQUESTS PAIN MEDICATION (SEE MAR FOR MEDICATION GIVEN). PT ORIENTED TO ALL BUT TIME HOWEVER HAS VERY POOR SHORT TERM MEMORY, DOES NOT REMEBER PIECES OF CONVERSATION THAT HE IS ASKED TO RECALL. PT HOWEVER DOES RECALL IN DETAIL EVENTS FROM HIS 20'S AND TELLS STORIES ABOUT HIS [place] AND TIMES WITH HIS FRIENDS. IV SITE REMAINS WNL. NO S/S OF PHLEBITIS. LUNG SOUNDS REMAIN CLEAR. HEART TONES REGULAR. EDEMA TO LEFT FOOT IMPROVING, NOW +1. ERYTHEMA WELL INSIDE MARKED LINES. SMALL AMOUNT OF RED SEROUSANGUINOUS DRAINAGE NOTED ON PAD OF LEFT FOOT THROUGH DRESSING. DRESSING TO LEFT FOOT OTHERWISE REMAINS C/D/I. DRESSING TO RIGHT FOOT C/D/I. BILATERAL STRONG PLANTAR AND DORSI FELXTION NOTED. CRACKERS PROVIDED PER PT REQUEST FOR SNACK. ICE WATER REFILLED. PT DENIES ADDITIONAL REQUESTS OR COMPLAINTS. CALL LIGHT WITHIN REACH. CHAIR ALARM ON.
--- NOTE | 2021-10-08 14:54 | NUR ---
CALL PLACED TO SAI, PTS , WITH UPDATE. VANNESSA UPDATED ON PT STATUS AND PLAN OF CARE. VANNESSA VERBALIZES UNDERSTANDING AND STATES HER QUESTIONS HAVE BEEN ANSWERED. PT RESTING IN BED WITH EYES CLOSED. RESPIRATIONS EVEN AND UNLABORED. PTS STATES SHE WILL CALL BACK AT ANOTHER TIME TO TALK WITH PT. BED RAILS UP. BED ALARM ON. CALL LIGHT WITHIN REACH.
--- NOTE | 2021-10-08 15:01 | NUR ---
PT HERE FOR LFET DIABETIC FOOT WOUND WITH CELLULITIS. STAND BY TO 1 PERSON ASSIST UP TO RESTROOM, CHAIR, AND WITH PHYSICAL THERAPY. PT TOLERATING 60G CARB DIET WITH GOOD APPITITE. BLOOD SUGAR CHECKS WITH MEALS WITH SLIDING SCALE INSULIN. PT OREINTED TO ALL BUT TIME AND SHORT TERM EVENTS THIS SHIFT. PT PLESENET AND INVOLVED WITH CARES. LUNG SOUNDS CLEAR. HEART TONES REMAIN IRREGULAR PER PTS BASELINE. DRESSSINGS TO BILIATERAL FEET CHANGD THIS MORNING BY DR. JONES. PHTOGRAPHS TAKEN OF LEFT FOOT (NOT IN ROOM DURING RIGHT FOOT DRESSING CHANGE). MINIMAL SEROUS ANGUINOUS DRAINAGE NOTED THIS SHIFT. PRN PAIN MEDICAITON GIVEN FOR 2/10 BURNING PAIN THIS SHIFT. PT VOIDING QUANITTY SUFFICIENT. PT USES CALL LIGHT AND MAKES NEEDS KNOWN THIS SHFIT. BED/CHAIR ALARM FOR SAFETY.
--- NOTE | 2021-10-08 15:34 | NUR ---
THIS RN TO ROOM TO CHECK ON PT. PT CONTINUES RESTING WITH EYES CLOSED NOW ON BACK IN SEMI CEVALLOS POSITION RATHER THAN RIGHT SIDE. RESPRIATIONS EVEN AND UNLABORED. BED RAILS UP. CALL LIGHT WITHIN REACH. BED ALARM ON.
--- NOTE | 2021-10-08 16:22 | NUR ---
REPORT GIVEN TO LINCOLN FONG WHO IS ASSUMING CARE OF PT. PT RESTING IN BED AND DENIES REQUESTS OR COMPLAINTS. CALL LIGHT WITHIN REACH. BED ALARM ON.
--- NOTE | 2021-10-08 19:30 | NUR ---
REPORT TAKEN ON PT. HE IS SITTING UP IN HIS CHAIIR , IS IN ROOM. IV APPEARS TO BE INFILTRATING. ASSISTANT STORE MANAGER SALES NOTIFIED AND SHE WILL PLACE NEW IVS. PT USED URINAL WITH SBA. NO OTHER NEEDS.
--- NOTE | 2021-10-08 20:01 | NUR ---
PATIENTS IV NO LONGER PATENT. REDNESS NOTED ON LEFT UPPER FOREARM AROUND INSERTION SITE. NEW IV PLACED AND CAHRTED. PATIENT TOLERATED NEW IV PLACEMENT WELL. PATIENT IS RESTING IN RECLINER. NO FURTHER NEEDS NOTED. CALL LIGHT IN REACH. CHAIR ALARM ON FOR SAFETY. PRESENT IN ROOM.
--- NOTE | 2021-10-08 20:30 | NUR ---
chair alarm set off, pt using the urinal, rn now in rm, vs taken, urinal emptied, fresh water given
--- NOTE | 2021-10-08 22:33 | NUR ---
NEW IV STARTED FOR SECONDARY ABX NOT COMPATIBLE WITH ONES INFUSING PER ORDER CURRENTLY. PATIENT TOLERATED ACITIVTY WELL.
--- NOTE | 2021-10-08 23:10 | NUR ---
in to assist pt with urinal, sba, back to bed, alarm set
--- NOTE | 2021-10-09 00:53 | NUR ---
PT WAS INCONTINENT OF URINE . HE WAS ATTEMPTING TO CLEAN UP HIS BED. HE THREW ALL HIS TOP LINENS ON THE FLOOR, WAS WIPING HIS PANTS WITH HIS CHUX, BETTY HAD REMOVED THE DRESSING ON HIS RIGHT FOOT. PT WAS CLEANED, PLACED IN A GOWN AND CLEAN ATTENDS, CLEN TOP SHEET AND BLANKETS. RIGHT FOOT WAS REDRESSED AND A SOCK PLACED OVER THE DRESSING. BED ALARM IS ON. PT HAS CALL LIGHT IN REACH.
--- NOTE | 2021-10-09 05:09 | NUR ---
PT HAS BEEN DISORIENTED TO PLACE AND TIME THIS SHIFT. HE HAS BEEN INCONTINENT OF URINE X1. REMOVED HIS RIGHT FOOT DRESSING X1. PT HAS 2 NEEW IV STARTS THIS SHIFT. BOTH ARE PATENT. HAVE TRIED TO HAVE PT USE HIS CALL LIGHT , WHICH HE DID X2 ONLY. BED ALARM HAS BEEN ON THIS SHIFT.
--- NOTE | 2021-10-09 06:22 | NUR ---
PT SETS OFF BED ALARM FREQUENTLY. HE IS NOT ORIENTED TO TIME , PLACE OR SITUATION. HE IS NOT ABLE TO BE REORIENTED. BED ALARM IS ON.
--- NOTE | 2021-10-09 06:48 | NUR ---
JONES IN TO INSPECT, CLEAN AND CHANGE DRESSINGS TO BILATERL FEET. STATED THAT BOTH FEET APPEARED TO BE BETTER. PT TOKERATED PROCEDURE WELL.
--- NOTE | 2021-10-09 12:21 | NUR ---
No plan for dc today.
--- NOTE | 2021-10-09 13:05 | NUR ---
PT AMBULATING IN HALLWAY WITH Staci LYLE. PT SEEMS TO BE WORKING HARD. GAVE ENCOURAGEMENT, PT RESPONDED SAID IT FELT GOOD TO BE UP. WILL FOLLOW
--- NOTE | 2021-10-09 13:53 | NUR ---
Patient voided at this time, clear yellow urine noted. Patient assisted to bed from chair as he is requesting a short nap. Patient denies pain at this time. Fresh water provided. Patient denies needs, personal supplies and call light within reach. Bed alarm intact.
--- NOTE | 2021-10-09 19:30 | NUR ---
REPORT TAKEN ON PT. PT IS SITTING UP IN HIS CAHIR. IS IN ROOM. PT APOLOGIZES FOR BEING DIFFICULT LAST NIGHT. REASSURRED PT HE IS JUST FINE. CALL LIGHT IS IN REACH.
--- NOTE | 2021-10-09 21:38 | NUR ---
CALL LIGHT ANSWERED, pt REQUESTING ASSISTANCE WITH URINAL. pt UP TO STAND, VOIDED X1. pt BACK IN BED WITH BED ALARM RESUMED. CALL LIGHT IN REACH. PRIMARY RN JENIFER WOLFF.
--- NOTE | 2021-10-10 07:35 | NUR ---
Patient in bed resting, eyes closed, respirations even and non labored. Patient has no notable distress. Bed alarm intact. Personal supplies and call light within reach.
--- NOTE | 2021-10-10 09:20 | NUR ---
Admin one Marion 5/325mg po for reports of left foot pain.
--- NOTE | 2021-10-10 11:31 | NUR ---
Patient voided at this time, clear yellow urine noted. Patient assisted to bed from chair as he is requesting a short nap. Fresh water at bedside. Patient denies needs, personal supplies and call light within reach. Bed alarm intact.
--- NOTE | 2021-10-10 11:48 | NUR ---
PT ALERT, ORIENTED AND SITTNG IN CHAIR. PT PLEASANT, HAD GOOD VISIT.NO C/O AT THIS TIME. GAVE BLESSING AND WILL FOLLOW
--- NOTE | 2021-10-10 14:35 | NUR ---
Patient resting in bed, eyes closed, respirations even and non labored. IV abx infusing per provider order, IV site patent. Patient has no distress. Bed alarm intact, personal supplies and call light within reach.
--- NOTE | 2021-10-10 19:26 | NUR ---
RECEIVED REPORT FROM DAY SHIFT RN. PATIENT IS RESTING IN RECLINER. NO NEEDS NOTED. CHAIR ALARM ON FOR SAFETY.
--- NOTE | 2021-10-10 21:04 | NUR ---
CALL LIGHT ON. pt UP TO VOID, USED URINAL AND THEN SAT ON TOILET TO HAVE BM. pt REPORTED HE WAS NOT ABLE TO HAVE A BM AND WOULD LIKE A SUPPOSITORY AND A PAIN PILL. PRIMARY RN UPDATED ON REQUESTS. pt DID PM CARES, TEETH BRUSHED AND FACE WASHED. pt AMBULATED TO BED WITH FWW, 1PA. REQUIRED VERBAL CUES TO STAY ON TASK. VITALS DONE. PRIMARY RN IN ROOM.
--- NOTE | 2021-10-10 21:20 | NUR ---
PATIENT ASSEMENT COMPLETED. PATIENTS VITALS TAKEN AND RECORDED. PATIENTS IV ABX INFUSING PER ORDER. PATIENTS PM MEDS GIVEN PER ORDER. PATIENT RATES PAIN AT A 5/10 IN HIS LEFT FOOT, PRN PAIN MEDICATION GIVEN PER ORDER. PATIENT PATIENTS DRESSING ON LEFT AND RIGHT FOOR IS C/D/I. SMALL DRAINAGE NOTED. PATIENT PROVIDED WITH FRESH WATER. PATIENT DENIES ANY FURTHER NEEDS. CALL LIGHT IN REACH. BED ALARM ON FOR SAFETY.
--- NOTE | 2021-10-10 22:12 | NUR ---
PATIENT IS RESTING IN BED WITH EYES CLSOED. IV ABX COMPLETED INFUSING. PT IS NOW SL PER ORDER. CALL LIGHT IN REACH. BED ALARM ON FOR SAFETY.
--- NOTE | 2021-10-10 23:40 | NUR ---
PATIENT IS RESTING IN BED WITH EYES CLOSED, RR 16. CALL LIGHT IN REACH. BED ALARM ON FOR SAFETY.
--- NOTE | 2021-10-11 01:40 | NUR ---
PATIENT ASSISTED TO STAND AT BEDSIDE AND USE URINAL BY JANNETTE MCDONALD RN. PATEINT IS BACK IN BED RESTING. CALL LIGHT IN REACH. BED ALARM ON FOR SAFETY.
--- NOTE | 2021-10-11 03:07 | NUR ---
PATIENT IS RESTING IN BED WITH EYES CLSOED, RR 18. CALL LIGHT IN REACH. BED ALARM ON FOR SAFETY.
--- NOTE | 2021-10-11 06:16 | NUR ---
PATIENT ASSISTED TO STAND AT THE BEDSIDE AND USE URINAL. PATIENT ABLE TO VOID. PATIENT IS BACK IN BED RESTING. PATIENTS VITALS TAKEN AND RECORDED. INTAKE AND OUTPUT RECORDED. IV FLUSHED AND SL PER ORDER. NO FURTHER NEEDS NOTED. CALL LIGHT IN REACH. BED ALARM ON FOR SAFETY.
--- NOTE | 2021-10-11 07:53 | NUR ---
Bedside report received from NOC RN. Pt is lying in bed. Dr Lugo is about to change dressings to both feet. L foot wound looks much better as per NOC RN, comparing to how it presented on admission. Bed alarm on. Pt is NEWTOK.
--- NOTE | 2021-10-11 11:50 | NUR ---
Pt is sitting in the recliner resting. Reports no pain at the moment, unless she moves. Pt stated she had no much appetite. Importance of adequate nutrition discussed in healing process. Pt also requested pain medication to be given prior to PT tomorrow to decrease acute pain. This was relayed to PT, so it can be coordinated tomorrow.
--- NOTE | 2021-10-11 18:15 | NUR ---
Pt was restarted on Flomax (Hx of BPH). He does go a little each time. Pt si compliant with safety and uses call light when wanting to use restroom.
--- NOTE | 2021-10-11 18:16 | NUR ---
Jean Pierre trough tomorrow at 8:30am. BMP in am.
--- NOTE | 2021-10-11 19:45 | NUR ---
RECEIVED REPORT FROM DAY SHIFT RN. PATIENT IS RESTING IN BED TALKING ON PHONE. NO NEEDS NOTED. CALL LIGHT IN REACH. BED ALARM ON FOR SAFETY.
--- NOTE | 2021-10-11 20:21 | NUR ---
CALL LIGHT ON. pt STOOD AT BEDSIDE TO VOID. VITALS RECORDED. pt RESTING IN BED. BED ALARM ON. CALL LIGHT WITHIN REACH.
--- NOTE | 2021-10-11 21:02 | NUR ---
PATIENT ASSESMENT COMPLETED. PATIENTS PM MEDS GIVEN PER ORDER. IV ABX INFUSING PER ORDER. PATIENT RATES PAIN AT A 5/10 AND IS REQUESTING A PAIN MEDS. PRN PAIN MEDS GIVEN PER ORDER. PATIENTS DRESSING ON LEFT FOOT HAS A SCANT AMOUNT OF OLD DRAINGE NOTED AND DRESSING IS DRY AND INTACT. DRESSINGN ON RIGHT FOOT IS C/D/I. PATIENT IS ON RA. PATIENT DENIES ANY FURTHER NEEDS. CALL LIGHT IN REACH. BED ALARM ON FOR SAFETY.
--- NOTE | 2021-10-11 22:40 | NUR ---
ABX COMPLETED INFUSING. Pt NOW SL PER ORDER. PATIENT IS RESTING IN BED WITH EYES CLSOED, RR 17. CALL LIGHT IN REACH. BED ALARM ON FOR SAFETY.
--- NOTE | 2021-10-12 00:59 | NUR ---
PATIENT IS RESTING IN BED WITH EYES CLSOED, RR 16. CALL LIGHT IN REACH. BED ALARM ON FOR SAFETY.
--- NOTE | 2021-10-12 02:45 | NUR ---
PATEINT IS RESTING IN BED WITH EYES CLSOED, RR 16. CALL LIGHT IN REACH. BED ALARM ON FOR SAFETY.
--- NOTE | 2021-10-12 03:44 | NUR ---
PATIENT UP WITH BLACKJACK SUPERVISOR TO USE URINAL. PATIENT ABLE TO VOID. PATIENT IS BACK IN BED RESTING. PATIENT RATES PAIN AT A 1/10 AND DENIES THE NEED FOR PAIN MEDICATION. PATIENTS CALL LIGHT IN REACH. BED ALARM ON FOR SAFETY.
--- NOTE | 2021-10-12 05:27 | NUR ---
PATIENT ASSISTED TO STAND AND USE URINAL. PATIENT ABLE TO VOID. PATIENT IS BACK IN BED RESTING. PATIENTS VITALS TAKEN AND RECORDED. INTAKE AND OUTPUT RECORDED. PATIENT RATES PAIN AT A 1/10 AND DENIES THE NEED FOR PAIN MEDICATION AT THIS TIME. PATIENT PROVIDED WITH FRESH ICE WATER. NO FURTHER NEEDS NOTED. CALL LIGHT IN REACH.
--- NOTE | 2021-10-12 07:16 | NUR ---
Bedside report received from YAMILA RN. Pt is sleeping supine. No signs of distress. RA. Bed alarm on.
--- NOTE | 2021-10-12 08:20 | NUR ---
Pt is sitting in recliner, eating breakfast. VANCO TROUGH IS BEING DRAWN.
--- NOTE | 2021-10-12 09:20 | NUR ---
PATIENT BACK TO BED, BED ALARM IS ON.
--- NOTE | 2021-10-12 09:46 | NUR ---
Vanco trough came back as 25.2. Today's dose will be held per protocol.
--- NOTE | 2021-10-12 10:01 | NUR ---
Dr Lugo changed the dressings. He stated Pt might be going home tomorrow. His condition is imptoving.
[2021-10-12] MEDS ORDERED: DOXYCYCLINE HY100 MG PO (10:50)
[2021-10-12] MEDS ORDERED: DULCOLAX5 MG PO (10:54)
--- NOTE | 2021-10-12 13:51 | NUR ---
PATIENT DRESSED, IV REMOVED WITH CATHETER INTACT. PATIENT UP TO CHAIR TO AWAIT WIFES ARRIVAL. CHAIR ALARM IS ON.
== END 2021-10-12 14:30 | disposition home or self-care (01) | DRG 638 ==
LOC: ED 11:52 → MS 13:47
PROVIDERS: ADMIT Internal Medicine; ATTEND Internal Medicine
DX: E11.628 Type 2 diabetes mellitus with other skin complications (principal); L03.116 Cellulitis of left lower limb; I48.91 Unspecified atrial fibrillation; I10 Essential (primary) hypertension; N40.0 Benign prostatic hyperplasia without lower urinary tract symptoms; E79.0 Hyperuricemia without signs of inflammatory arthritis and tophaceous disease; Z86.73 Personal history of transient ischemic attack (TIA), and cerebral infarction without residual deficits; Z98.890 Other specified postprocedural states; Z79.2 Long term (current) use of antibiotics; Z79.899 Other long term (current) drug therapy; Z79.84 Long term (current) use of oral hypoglycemic drugs; Z79.82 Long term (current) use of aspirin; Z20.822 Contact with and (suspected) exposure to COVID-19; K59.03 Drug induced constipation; T40.2X5A Adverse effect of other opioids, initial encounter; M10.00 Idiopathic gout, unspecified site; Z96.641 Presence of right artificial hip joint; B95.62 Methicillin resistant Staphylococcus aureus infection as the cause of diseases classified elsewhere
CPT/HCPCS: 36415; 73630; 73723; 80048; 80053; 80202; 83036; 83605; 83735; 85025; 87040; 87070; 87075; 87186; 87205; 96365; 97116; 97162; 97530; 99284-25; A9270; A9577; A9579; J0692; J1815; J3370; J3475; J3480; J7060; J7120; U0003

== ENCOUNTER 2021-11-28 13:43 | Emergency (ER) | payer MEDICARE, OTHER ==
[~2021-11-28] VITALS: Ht 180.3 cm; Wt 87.5 kg
--- NOTE | ~2021-11-28 | EKG ---
[facility] [address] [place], [place] [address] Draft EK completed, results pending confirmation PATIENT NAME: JUSTICE LLANES Electrocardiogram DATE OF : 35 PHYSICIAN: PRELIMINARY REPORT #: [id number] REPORT IS CONFIDENTIAL AND NOT TO BE RELEASED WITHOUT AUTHORIZATION
[~2021-11-28 13:43] MED LIST changes: +AMOX TR-K CLV1 EAC1 PO; +DOXYCYCLINE HY100 MG PO; +DULCOLAX5 MG PO; +HYDROCODON-ACE1 EA10 PO; +LOSARTAN POTASS25 MG PO; +METFORMIN HCL500 M1 PO; +METOPROLOL SUCC25 MG PO; +POTASSIUM CHLO10 ME2 PO
--- OUTSIDE RECORDS SUMMARY | 2021-11-28 13:46 | XMS ---
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 Marvin has no Care Guidelines for this patient. Wang VISIT COUNT (12 MO.) 2 MALIA Rizo TOTAL 2 NOTE: Visits indicate total known visits. 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 - Other termite control servicer (current) drug therapy - Benign prostatic hyperplasia without lower urinary tract symptoms - Personal history of transient ischemic attack (TIA), and cerebral infarction without residual deficits - care home (current) use of antibiotics - Other specified postprocedural states - Presence of right artificial hip joint - Methicillin resistant Staphylococcus aureus infection as the cause of diseases classified elsewhere - Type 2 diabetes mellitus with other skin complications - Personal history of transient ischemic attack (TIA), and cerebral infarction without residual deficits - Hyperuricemia without signs of inflammatory arthritis and tophaceous disease - Drug induced constipation - Benign prostatic hyperplasia without lower urinary tract symptoms - Type 2 diabetes mellitus with other skin complications - Other termite control servicer (current) drug therapy - Contact with and (suspected) exposure to COVID-19 - Gout, unspecified - Unspecified atrial fibrillation - Adverse effect of other opioids, initial encounter - Hyperuricemia without signs of inflammatory arthritis and tophaceous disease - Infection following a procedure, other surgical site, initial encounter - Unspecified atrial fibrillation - Essential (primary) hypertension - care home (current) use of aspirin - termite helper (current) use of oral hypoglycemic drugs - care home (current) use of antibiotics - care home (current) use of oral hypoglycemic drugs - Type 2 diabetes mellitus without complications - Drug induced constipation - Idiopathic gout, unspecified site - Essential (primary) hypertension - Other specified postprocedural states - Adverse effect of other opioids, initial encounter - Contact with and (suspected) exposure to COVID-19 - Cellulitis of left lower limb [email or web address]
== END 2021-11-28 17:17 | disposition home or self-care (01) ==
LOC: ED 13:43
DX: I95.9 Hypotension, unspecified (principal); M10.9 Gout, unspecified; I48.91 Unspecified atrial fibrillation; E11.9 Type 2 diabetes mellitus without complications; Z86.73 Personal history of transient ischemic attack (TIA), and cerebral infarction without residual deficits; Z79.899 Other long term (current) drug therapy; Z79.84 Long term (current) use of oral hypoglycemic drugs
CPT/HCPCS: 36415; 80053; 85025; 93005; 93010; 96360; 99285-25; J7030